=== PATIENT | male | born 1930 | race Caucasian/White ===

== ENCOUNTER 2017-01-17 21:16 | Inpatient (IN) | payer OTHER ==
[~2017-01-17] VITALS: Ht 170.2 cm; Wt 94.5 kg
[~2017-01-17 21:16] MED LIST: AMLODIPINE BESY10 MG PO; ASPIRIN325 MG PO; ATACAND16 MG PO; CIPRO500 MG PO; FLAGYL500 MG PO; METOPROLOL SUCC50 MG PO; METOPROLOL TART50 MG PO; PANTOPRAZOLE SO40 MG PO; SIMVASTATIN20 MG PO; TAMSULOSIN HCL0.4 MG PO; ULTRAM50 MG PO; Vancocin Oral Solution PO; ZOCOR40 MG PO; ZOFRAN ODT8 MG PO
[2017-01-18 00:16] LABS: EOSINOPHIL (%) 0.8 % (0-5); EOSINOPHIL COUNT 0.1 K/uL (0-0.3); IMMATURE GRANULOCYTE (%) 0.5 % (0.0-0.7); INSTRUMENT ABS NEUTROPHIL CT 4.6 K/uL; LYMPHOCYTE COUNT 0.6 K/uL (1.0-2.8); MCH 29.7 PG (29.0-34.0); MCHC 31.4 G/DL (30.0-36.0); MCV 94.6 FL (86-99); MEAN PLAT.VOLUME 11.4 uM^3 (9.0-12.4); MONOCYTE (%) 13.8 % (3-12); MONOCYTE COUNT 0.9 K/uL (0-0.8); NEUTROPHIL (%) 74.7 % (45-76); NEUTROPHIL COUNT 4.6 K/uL (1.8-6.4); PLATELET COUNT 136 K/uL (156-360); RBC DIS.WIDTH-CV 13.2 % (11.8-14.6); RBC DIS.WIDTH-SD 45.9 % (39-53); WHITE BLOOD COUNT 6.2 K/uL (4.1-10.2)
[2017-01-18 00:24] LABS: CHLORIDE 109 mEq/L (99-109); INTER. NORMALIZED RATIO 1.1; POTASSIUM 4.4 mEq/L (3.7-5.4); PROTHROMBIN TIME 11.6 (9.2-11.2); PTT 25.2 (25-32); SODIUM 142 mEq/L (136-147)
[2017-01-18 00:26] LABS: GLUCOSE 102 mg/dL (70-99)
[2017-01-18 00:27] LABS: ANION GAP 11 MEQ/L (2-14)
[2017-01-18 00:30] LABS: GFR ESTIMATE (CALCULATED) 51 mL/min/
[2017-01-18 00:31] LABS: UREA NITROGEN (BUN) 39 mg/dL (9-23)
[2017-01-18 00:57] LABS: TROP-I INTERPRETATION NEGATIVE; TROPONIN-I 0.04 ng/mL (0.0-0.30)
[2017-01-18 03:57] VITALS: BP 145/73
[2017-01-18 07:17] VITALS: BP 127/57
[2017-01-18] MEDS ORDERED: FLOMAX0.4 MG PO (08:13)
[2017-01-18 12:28] VITALS: BP 141/64
[2017-01-18] MEDS ORDERED: TOPROL XL50 MG PO (14:36)
[2017-01-18 15:41] VITALS: BP 118/85
[2017-01-18 18:34] LABS: C DIFF TOXIN NEGATIVE (NEGATIVE)
[2017-01-18 18:38] LABS: PROBE CHECK PASS; SPECIMEN PROCESSING CONTROL PASS
[2017-01-18 19:52] VITALS: BP 161/72
[2017-01-18 23:34] VITALS: BP 130/60
[2017-01-19 03:23] VITALS: BP 111/56
[2017-01-19 07:55] VITALS: BP 138/63
[2017-01-19 08:14] LABS: EOSINOPHIL (%) 1.6 % (0-5); EOSINOPHIL COUNT 0.1 K/uL (0-0.3); HEMATOCRIT 28.7 % (38.0-50.0); IMMATURE GRANULOCYTE (%) 0.5 % (0.0-0.7); LYMPHOCYTE COUNT 0.7 K/uL (1.0-2.8); MCH 29.8 PG (29.0-34.0); MEAN PLAT.VOLUME 11.5 uM^3 (9.0-12.4); MONOCYTE COUNT 0.7 K/uL (0-0.8); NEUTROPHIL (%) 71.9 % (45-76); PLATELET COUNT 149 K/uL (156-360); RBC DIS.WIDTH-CV 13.5 % (11.8-14.6); RBC DIS.WIDTH-SD 47.7 % (39-53); RED BLOOD COUNT 2.99 M/uL (4.00-5.50); WHITE BLOOD COUNT 5.5 K/uL (4.1-10.2)
[2017-01-19 08:17] LABS: ANION GAP 8 MEQ/L (2-14); CHLORIDE 108 MEQ/L (99-109); GFR ESTIMATE (CALCULATED) 51 mL/min/; GLUCOSE 84 mg/dL (70-99); POTASSIUM 4.3 MEQ/L (3.7-5.4); SAMPLE HEMOLYSIS CHECK 0; SAMPLE ICTERIC CHECK 0; SAMPLE LIPEMIA CHECK 0; SODIUM 142 MEQ/L (136-147); UREA NITROGEN (BUN) 40 mg/dL (9-23)
[2017-01-19 11:56] VITALS: BP 145/67
[2017-01-19 14:30] VITALS: BP 158/65
[2017-01-19 18:20] VITALS: BP 139/69
[2017-01-19 23:23] VITALS: BP 132/66
[2017-01-20] VITALS (9 sets, daily range): BP systolic 112–168; BP diastolic 55–83
[2017-01-20 00:15] LABS: HEMATOCRIT 24.1 % (38.0-50.0); MCH 29.9 PG (29.0-34.0); MCHC 31.5 G/DL (30.0-36.0); MCV 94.9 FL (86-99); MEAN PLAT.VOLUME 10.5 uM^3 (9.0-12.4); PLATELET COUNT 105 K/uL (156-360); RBC DIS.WIDTH-CV 13.3 % (11.8-14.6); RBC DIS.WIDTH-SD 45.6 % (39-53); RED BLOOD COUNT 2.54 M/uL (4.00-5.50)
[2017-01-20 00:16] LABS: WHITE BLOOD COUNT 3.8 K/uL (4.1-10.2)
[2017-01-20 08:11] LABS: HEMATOCRIT 26.8 % (38.0-50.0); MCH 30.5 PG (29.0-34.0); MCHC 32.1 G/DL (30.0-36.0); MEAN PLAT.VOLUME 11.1 uM^3 (9.0-12.4); PLATELET COUNT 119 K/uL (156-360); RBC DIS.WIDTH-CV 13.5 % (11.8-14.6); RBC DIS.WIDTH-SD 46.7 % (39-53); RED BLOOD COUNT 2.82 M/uL (4.00-5.50); WHITE BLOOD COUNT 3.4 K/uL (4.1-10.2)
[2017-01-20 08:38] LABS: ANION GAP 8 MEQ/L (2-14); CHLORIDE 109 MEQ/L (99-109); GFR ESTIMATE (CALCULATED) 47 mL/min/; GLUCOSE 120 mg/dL (70-99); POTASSIUM 4.4 MEQ/L (3.7-5.4); SAMPLE HEMOLYSIS CHECK 0; SAMPLE ICTERIC CHECK 0; SAMPLE LIPEMIA CHECK 0; SODIUM 140 MEQ/L (136-147); UREA NITROGEN (BUN) 33 mg/dL (9-23)
[2017-01-20 12:52] LABS: MCH 30.1 PG (29.0-34.0); MCHC 31.8 G/DL (30.0-36.0); MCV 94.6 FL (86-99); MEAN PLAT.VOLUME 11.6 uM^3 (9.0-12.4); PLATELET COUNT 132 K/uL (156-360); RBC DIS.WIDTH-CV 13.6 % (11.8-14.6); RBC DIS.WIDTH-SD 46.4 % (39-53); RED BLOOD COUNT 2.96 M/uL (4.00-5.50)
[2017-01-20 20:04] LABS: HEMATOCRIT 29.2 % (38.0-50.0); MCH 29.8 PG (29.0-34.0); MCHC 31.8 G/DL (30.0-36.0); MCV 93.6 FL (86-99); MEAN PLAT.VOLUME 11.4 uM^3 (9.0-12.4); PLATELET COUNT 129 K/uL (156-360); RBC DIS.WIDTH-CV 13.4 % (11.8-14.6); RBC DIS.WIDTH-SD 45.3 % (39-53); RED BLOOD COUNT 3.12 M/uL (4.00-5.50); WHITE BLOOD COUNT 4.8 K/uL (4.1-10.2)
[2017-01-21 01:18] LABS: HEMATOCRIT 28.7 % (38.0-50.0); MCH 30.1 PG (29.0-34.0); MCHC 32.4 G/DL (30.0-36.0); MCV 92.9 FL (86-99); MEAN PLAT.VOLUME 11.2 uM^3 (9.0-12.4); PLATELET COUNT 129 K/uL (156-360); RBC DIS.WIDTH-CV 13.5 % (11.8-14.6); RBC DIS.WIDTH-SD 45.3 % (39-53); RED BLOOD COUNT 3.09 M/uL (4.00-5.50); WHITE BLOOD COUNT 5.3 K/uL (4.1-10.2)
[2017-01-21 04:15] VITALS: BP 122/77
[2017-01-21 07:47] LABS: EOSINOPHIL (%) 1.1 % (0-5); EOSINOPHIL COUNT 0.1 K/uL (0-0.3); HEMATOCRIT 30.3 % (38.0-50.0); IMMATURE GRANULOCYTE (%) 0.5 % (0.0-0.7); INSTRUMENT ABS NEUTROPHIL CT 4.2 K/uL; LYMPHOCYTE COUNT 0.6 K/uL (1.0-2.8); MCH 30.6 PG (29.0-34.0); MCV 95.6 FL (86-99); MEAN PLAT.VOLUME 11.7 uM^3 (9.0-12.4); MONOCYTE (%) 13.2 % (3-12); MONOCYTE COUNT 0.7 K/uL (0-0.8); NEUTROPHIL (%) 74.6 % (45-76); NEUTROPHIL COUNT 4.2 K/uL (1.8-6.4); PLATELET COUNT 136 K/uL (156-360); RBC DIS.WIDTH-CV 13.5 % (11.8-14.6); RBC DIS.WIDTH-SD 46.4 % (39-53); RED BLOOD COUNT 3.17 M/uL (4.00-5.50); WHITE BLOOD COUNT 5.6 K/uL (4.1-10.2)
[2017-01-21 08:19] LABS: ANION GAP 11 MEQ/L (2-14); CHLORIDE 108 MEQ/L (99-109); GFR ESTIMATE (CALCULATED) 44 mL/min/; GLUCOSE 104 mg/dL (70-99); POTASSIUM 3.9 MEQ/L (3.7-5.4); SAMPLE HEMOLYSIS CHECK 0; SAMPLE ICTERIC CHECK 0; SAMPLE LIPEMIA CHECK 0; SODIUM 141 MEQ/L (136-147); UREA NITROGEN (BUN) 26 mg/dL (9-23)
[2017-01-21 08:26] VITALS: BP 128/92
[2017-01-21 12:01] VITALS: BP 123/58
[2017-01-21 17:22] VITALS: BP 132/65
[2017-01-21 20:30] VITALS: BP 117/60
[2017-01-22] VITALS (7 sets, daily range): BP systolic 115–168; BP diastolic 55–80
[2017-01-22 06:01] LABS: EOSINOPHIL COUNT 0.1 K/uL (0-0.3); HEMATOCRIT 28.8 % (38.0-50.0); IMMATURE GRANULOCYTE (%) 0.7 % (0.0-0.7); INSTRUMENT ABS NEUTROPHIL CT 3.2 K/uL; LYMPHOCYTE COUNT 0.6 K/uL (1.0-2.8); MCH 30.4 PG (29.0-34.0); MCHC 31.9 G/DL (30.0-36.0); MEAN PLAT.VOLUME 11.6 uM^3 (9.0-12.4); MONOCYTE (%) 15.5 % (3-12); MONOCYTE COUNT 0.7 K/uL (0-0.8); NEUTROPHIL (%) 69.1 % (45-76); NEUTROPHIL COUNT 3.2 K/uL (1.8-6.4); PLATELET COUNT 145 K/uL (156-360); RBC DIS.WIDTH-CV 13.7 % (11.8-14.6); RBC DIS.WIDTH-SD 46.7 % (39-53); RED BLOOD COUNT 3.03 M/uL (4.00-5.50); WHITE BLOOD COUNT 4.6 K/uL (4.1-10.2)
[2017-01-22 06:48] LABS: CHLORIDE 109 mEq/L (99-109); POTASSIUM 3.8 mEq/L (3.7-5.4); SODIUM 141 mEq/L (136-147)
[2017-01-22 06:50] LABS: GLUCOSE 109 mg/dL (70-99)
[2017-01-22 06:51] LABS: ANION GAP 9 MEQ/L (2-14)
[2017-01-22 06:54] LABS: GFR ESTIMATE (CALCULATED) 44 mL/min/
[2017-01-22 06:55] LABS: UREA NITROGEN (BUN) 19 mg/dL (9-23)
[2017-01-23] VITALS (7 sets, daily range): BP systolic 115–174; BP diastolic 62–80
[2017-01-24 07:00] VITALS: BP 139/67
[2017-01-24 15:38] VITALS: BP 175/77
[2017-01-24 22:31] VITALS: BP 108/68
[2017-01-25 06:31] LABS: EOSINOPHIL (%) 1.3 % (0-5); EOSINOPHIL COUNT 0.1 K/uL (0-0.3); HEMATOCRIT 26.8 % (38.0-50.0); IMMATURE GRANULOCYTE (%) 0.4 % (0.0-0.7); INSTRUMENT ABS NEUTROPHIL CT 3.4 K/uL; LYMPHOCYTE COUNT 0.5 K/uL (1.0-2.8); MCH 30.9 PG (29.0-34.0); MCHC 32.5 G/DL (30.0-36.0); MEAN PLAT.VOLUME 11.9 uM^3 (9.0-12.4); MONOCYTE (%) 15.2 % (3-12); MONOCYTE COUNT 0.7 K/uL (0-0.8); NEUTROPHIL (%) 72.2 % (45-76); NEUTROPHIL COUNT 3.4 K/uL (1.8-6.4); PLATELET COUNT 132 K/uL (156-360); RBC DIS.WIDTH-CV 13.6 % (11.8-14.6); RED BLOOD COUNT 2.82 M/uL (4.00-5.50); WHITE BLOOD COUNT 4.8 K/uL (4.1-10.2)
[2017-01-25 07:08] VITALS: BP 133/63
[2017-01-25 07:30] LABS: ANION GAP 7 MEQ/L (2-14); CHLORIDE 108 MEQ/L (99-109); GFR ESTIMATE (CALCULATED) 41 mL/min/; GLUCOSE 95 mg/dL (70-99); POTASSIUM 3.9 MEQ/L (3.7-5.4); SAMPLE HEMOLYSIS CHECK 0; SAMPLE ICTERIC CHECK 0; SAMPLE LIPEMIA CHECK 0; SODIUM 142 MEQ/L (136-147); UREA NITROGEN (BUN) 18 mg/dL (9-23)
[2017-01-25] MEDS ORDERED: CALAMINE LOTIO120 ML TP (15:22)
[2017-01-25] MEDS ORDERED: PANTOPRAZOLE SO40 MG PO (15:22)
[2017-01-25 16:12] VITALS: BP 132/72
== END 2017-01-25 16:50 | disposition home or self-care (01) | DRG 378 ==
LOC: EME 21:16 → EDOF 01-18 03:04 → 4EAST 01-18 03:14 → 2EAST 01-18 03:14 → EDOF 01-18 03:14 → 2EAST 01-18 03:50 → 4EAST 01-19 18:24 → 5EAST 01-23 19:34
PROVIDERS: Emergency Medicine; Family Medicine Sports Medicine; Specialist
PROC: 0DJ08ZZ Inspection of Upper Intestinal Tract, Via Natural or Artificial Opening Endoscopic (ICD-10-PCS; principal; 2017-01-19)
PROC: 30233N1 Transfusion of Nonautologous Red Blood Cells into Peripheral Vein, Percutaneous Approach (ICD-10-PCS; 2017-01-20)
PROC: BD47ZZZ Ultrasonography of Gastrointestinal Tract (ICD-10-PCS; 2017-01-20)
PROC: 0DJ08ZZ Inspection of Upper Intestinal Tract, Via Natural or Artificial Opening Endoscopic (ICD-10-PCS; 2017-01-20)
DX: K29.81 Duodenitis with bleeding (principal); C77.2 Secondary and unspecified malignant neoplasm of intra-abdominal lymph nodes; D73.5 Infarction of spleen; R16.1 Splenomegaly, not elsewhere classified; N17.9 Acute kidney failure, unspecified; K29.70 Gastritis, unspecified, without bleeding; I86.8 Varicose veins of other specified sites; N28.89 Other specified disorders of kidney and ureter; D69.6 Thrombocytopenia, unspecified; D64.9 Anemia, unspecified; I12.9 Hypertensive chronic kidney disease with stage 1 through stage 4 chronic kidney disease, or unspecified chronic kidney disease; N18.9 Chronic kidney disease, unspecified; R01.1 Cardiac murmur, unspecified; K21.9 Gastro-esophageal reflux disease without esophagitis; E78.5 Hyperlipidemia, unspecified; I25.10 Atherosclerotic heart disease of native coronary artery without angina pectoris; G89.29 Other chronic pain; I49.3 Ventricular premature depolarization; M54.5 Low back pain; M19.90 Unspecified osteoarthritis, unspecified site; E66.9 Obesity, unspecified; Z68.32 Body mass index [BMI] 32.0-32.9, adult; F41.9 Anxiety disorder, unspecified; F32.9 Major depressive disorder, single episode, unspecified; Z93.3 Colostomy status; Z96.641 Presence of right artificial hip joint; Z98.61 Coronary angioplasty status; Z85.038 Personal history of other malignant neoplasm of large intestine; Z86.73 Personal history of transient ischemic attack (TIA), and cerebral infarction without residual deficits
CPT/HCPCS: 74177; 80048; 84484; 85025; 85027; 85610; 85730; 86900; 86901; 86920; 87493; 90732; 93005; 93306; 94799; 99281; 99285; C1726; C9113; G0009; J2354; J2765; J3010; J7030; J7050; J7120; P9016

== ENCOUNTER 2017-01-27 13:08 | Inpatient (IN) | payer OTHER ==
[~2017-01-27] VITALS: Ht 170.2 cm; Wt 91.1 kg
[~2017-01-27 13:08] MED LIST changes: +CALAMINE LOTIO120 ML TP; +FLOMAX0.4 MG PO; +TOPROL XL50 MG PO
[2017-01-27 13:47] LABS: HEMATOCRIT 27.1 % (38.0-50.0); MCH 29.9 PG (29.0-34.0); MCHC 32.1 G/DL (30.0-36.0); MCV 93.1 FL (86-99); MEAN PLAT.VOLUME 10.4 uM^3 (9.0-12.4); PLATELET COUNT 142 K/uL (156-360); RBC DIS.WIDTH-CV 13.6 % (11.8-14.6); RBC DIS.WIDTH-SD 46.6 % (39-53); RED BLOOD COUNT 2.91 M/uL (4.00-5.50); WHITE BLOOD COUNT 5.1 K/uL (4.1-10.2)
[2017-01-27 13:57] LABS: CHLORIDE 110 mEq/L (99-109); INTER. NORMALIZED RATIO 1.2; POTASSIUM 3.7 mEq/L (3.7-5.4); PROTHROMBIN TIME 11.8 (9.2-11.2); PTT 25.4 (25-32)
[2017-01-27 13:58] LABS: SODIUM 142 mEq/L (136-147)
[2017-01-27 14:00] LABS: GLUCOSE 129 mg/dL (70-99)
[2017-01-27 14:01] LABS: ANION GAP 6 MEQ/L (2-14)
[2017-01-27 14:02] LABS: TOTAL BILIRUBIN 0.5 mg/dL (0.0-1.0)
[2017-01-27 14:03] LABS: ALKALINE PHOSPHATASE 46 IU/L (3-129); GFR ESTIMATE (CALCULATED) 41 mL/min/
[2017-01-27 14:05] LABS: UREA NITROGEN (BUN) 25 mg/dL (9-23)
[2017-01-27 14:09] LABS: TROP-I INTERPRETATION NEGATIVE; TROPONIN-I 0.07 ng/mL (0.0-0.30)
[2017-01-27] MEDS ORDERED: FISH OIL 1,0001 EAC7 PO (15:25)
[2017-01-27] MEDS ORDERED: PROTONIX40 MG PO (15:25)
[2017-01-27] MEDS ORDERED: MEN 50 PLUS MU1 EACH PO (15:25)
[2017-01-27 17:30] VITALS: BP 150/85
[2017-01-27 18:10] VITALS: BP 183/78
[2017-01-27 19:09] VITALS: BP 182/90
[2017-01-27 20:20] VITALS: BP 160/70
[2017-01-28 00:41] LABS: HEMATOCRIT 24.7 % (38.0-50.0); MCV 90.8 FL (86-99)
[2017-01-28 01:33] VITALS: BP 134/67
[2017-01-28 06:51] VITALS: BP 152/70
[2017-01-28 08:06] LABS: HEMATOCRIT 25.7 % (38.0-50.0); MCHC 32.3 G/DL (30.0-36.0); MCV 92.8 FL (86-99); MEAN PLAT.VOLUME 10.9 uM^3 (9.0-12.4); PLATELET COUNT 146 K/uL (156-360); RBC DIS.WIDTH-CV 15.7 % (11.8-14.6); RBC DIS.WIDTH-SD 53.1 % (39-53); RED BLOOD COUNT 2.77 M/uL (4.00-5.50); WHITE BLOOD COUNT 5.5 K/uL (4.1-10.2)
[2017-01-28 08:49] LABS: ALKALINE PHOSPHATASE 37 IU/L (3-129); ANION GAP 4 MEQ/L (2-14); CHLORIDE 109 MEQ/L (99-109); GFR ESTIMATE (CALCULATED) 44 mL/min/; GLUCOSE 124 mg/dL (70-99); POTASSIUM 4.3 MEQ/L (3.7-5.4); SAMPLE HEMOLYSIS CHECK 0; SAMPLE ICTERIC CHECK 0; SAMPLE LIPEMIA CHECK 0; SODIUM 141 MEQ/L (136-147); TOTAL BILIRUBIN 1.1 MG/DL (0.0-1.0); UREA NITROGEN (BUN) 25 mg/dL (9-23)
[2017-01-28 14:30] LABS: HEMATOCRIT 26.1 % (38.0-50.0); MCV 92.6 FL (86-99)
[2017-01-28 20:26] LABS: HEMATOCRIT 26.3 % (38.0-50.0); MCV 93.9 FL (86-99)
[2017-01-29 02:21] LABS: HEMATOCRIT 25.3 % (38.0-50.0)
[2017-01-29 08:00] VITALS: BP 151/69
[2017-01-29 08:32] LABS: EOSINOPHIL COUNT 0.1 K/uL (0-0.3); HEMATOCRIT 25.7 % (38.0-50.0); IMMATURE GRANULOCYTE (%) 0.4 % (0.0-0.7); INSTRUMENT ABS NEUTROPHIL CT 3.3 K/uL; LYMPHOCYTE COUNT 0.5 K/uL (1.0-2.8); MCH 29.2 PG (29.0-34.0); MCHC 31.5 G/DL (30.0-36.0); MCV 92.8 FL (86-99); MEAN PLAT.VOLUME 10.6 uM^3 (9.0-12.4); MONOCYTE (%) 13.8 % (3-12); MONOCYTE COUNT 0.6 K/uL (0-0.8); NEUTROPHIL (%) 72.2 % (45-76); NEUTROPHIL COUNT 3.3 K/uL (1.8-6.4); PLATELET COUNT 157 K/uL (156-360); RBC DIS.WIDTH-CV 15.6 % (11.8-14.6); RBC DIS.WIDTH-SD 52.3 % (39-53); RED BLOOD COUNT 2.77 M/uL (4.00-5.50); WHITE BLOOD COUNT 4.6 K/uL (4.1-10.2)
[2017-01-29 08:50] LABS: CHLORIDE 109 mEq/L (99-109); POTASSIUM 4.1 mEq/L (3.7-5.4); SODIUM 144 mEq/L (136-147)
[2017-01-29 08:52] LABS: GLUCOSE 127 mg/dL (70-99)
[2017-01-29 08:53] LABS: ANION GAP 5 MEQ/L (2-14)
[2017-01-29 08:56] LABS: GFR ESTIMATE (CALCULATED) 41 mL/min/
[2017-01-29 08:57] LABS: UREA NITROGEN (BUN) 20 mg/dL (9-23)
[2017-01-29 15:54] VITALS: BP 151/67
[2017-01-29 16:23] LABS: HEMATOCRIT 27.8 % (38.0-50.0); MCV 93.9 FL (86-99)
[2017-01-30] VITALS (8 sets, daily range): BP systolic 94–136; BP diastolic 59–63
[2017-01-30 07:16] LABS: EOSINOPHIL (%) 2.9 % (0-5); EOSINOPHIL COUNT 0.1 K/uL (0-0.3); HEMATOCRIT 24.1 % (38.0-50.0); IMMATURE GRANULOCYTE (%) 0.4 % (0.0-0.7); INSTRUMENT ABS NEUTROPHIL CT 3.2 K/uL; LYMPHOCYTE COUNT 0.5 K/uL (1.0-2.8); MCH 29.8 PG (29.0-34.0); MCHC 31.5 G/DL (30.0-36.0); MCV 94.5 FL (86-99); MEAN PLAT.VOLUME 10.9 uM^3 (9.0-12.4); MONOCYTE (%) 14.2 % (3-12); MONOCYTE COUNT 0.6 K/uL (0-0.8); NEUTROPHIL (%) 70.4 % (45-76); NEUTROPHIL COUNT 3.2 K/uL (1.8-6.4); PLATELET COUNT 148 K/uL (156-360); RBC DIS.WIDTH-CV 15.3 % (11.8-14.6); RBC DIS.WIDTH-SD 52.6 % (39-53); RED BLOOD COUNT 2.55 M/uL (4.00-5.50); WHITE BLOOD COUNT 4.5 K/uL (4.1-10.2)
[2017-01-30 07:53] LABS: ANION GAP 7 MEQ/L (2-14); CHLORIDE 110 MEQ/L (99-109); GFR ESTIMATE (CALCULATED) 38 mL/min/; GLUCOSE 112 mg/dL (70-99); POTASSIUM 3.9 MEQ/L (3.7-5.4); SAMPLE HEMOLYSIS CHECK 0; SAMPLE ICTERIC CHECK 0; SAMPLE LIPEMIA CHECK 0; SODIUM 144 MEQ/L (136-147); UREA NITROGEN (BUN) 16 mg/dL (9-23)
[2017-01-31 04:28] VITALS: BP 136/64
[2017-01-31 07:26] VITALS: BP 120/57
[2017-01-31 07:27] LABS: HEMATOCRIT 27.1 % (38.0-50.0); MCV 93.1 FL (86-99)
[2017-01-31 13:19] LABS: HEMATOCRIT 26.6 % (38.0-50.0); MCH 29.5 PG (29.0-34.0); MCHC 31.6 G/DL (30.0-36.0); MCV 93.3 FL (86-99); PLATELET COUNT 130 K/uL (156-360); RBC DIS.WIDTH-CV 15.1 % (11.8-14.6); RBC DIS.WIDTH-SD 51.1 % (39-53); RED BLOOD COUNT 2.85 M/uL (4.00-5.50); WHITE BLOOD COUNT 5.6 K/uL (4.1-10.2)
[2017-01-31 16:56] VITALS: BP 137/58
[2017-01-31 18:36] LABS: HEMATOCRIT 28.9 % (38.0-50.0); MCV 93.2 FL (86-99)
[2017-01-31 22:43] VITALS: BP 129/55
[2017-02-01 08:13] VITALS: BP 106/53
[2017-02-01 08:14] LABS: EOSINOPHIL (%) 1.2 % (0-5); EOSINOPHIL COUNT 0.1 K/uL (0-0.3); HEMATOCRIT 27.2 % (38.0-50.0); IMMATURE GRANULOCYTE (%) 0.4 % (0.0-0.7); INSTRUMENT ABS NEUTROPHIL CT 5.1 K/uL; LYMPHOCYTE COUNT 0.5 K/uL (1.0-2.8); MCH 29.1 PG (29.0-34.0); MCHC 31.3 G/DL (30.0-36.0); MCV 93.2 FL (86-99); MEAN PLAT.VOLUME 11.6 uM^3 (9.0-12.4); MONOCYTE (%) 15.4 % (3-12); NEUTROPHIL (%) 75.7 % (45-76); NEUTROPHIL COUNT 5.1 K/uL (1.8-6.4); PLATELET COUNT 135 K/uL (156-360); RBC DIS.WIDTH-CV 14.8 % (11.8-14.6); RBC DIS.WIDTH-SD 50.6 % (39-53); RED BLOOD COUNT 2.92 M/uL (4.00-5.50); WHITE BLOOD COUNT 6.7 K/uL (4.1-10.2)
[2017-02-01 09:00] VITALS: BP 106/51
[2017-02-01 10:48] VITALS: BP 122/59
[2017-02-01 17:10] VITALS: BP 123/57
[2017-02-01 18:13] LABS: HEMATOCRIT 26.6 % (38.0-50.0); MCV 93.7 FL (86-99)
[2017-02-01 21:43] VITALS: BP 133/63
[2017-02-01 22:46] VITALS: BP 137/63
[2017-02-02 07:13] LABS: HEMATOCRIT 24.6 % (38.0-50.0); MCH 29.5 PG (29.0-34.0); MCHC 31.3 G/DL (30.0-36.0); MCV 94.3 FL (86-99); MEAN PLAT.VOLUME 11.5 uM^3 (9.0-12.4); PLATELET COUNT 113 K/uL (156-360); RBC DIS.WIDTH-CV 14.5 % (11.8-14.6); RBC DIS.WIDTH-SD 49.6 % (39-53); RED BLOOD COUNT 2.61 M/uL (4.00-5.50); WHITE BLOOD COUNT 4.7 K/uL (4.1-10.2)
[2017-02-02 07:34] VITALS: BP 113/56
[2017-02-02 15:12] VITALS: BP 110/50
[2017-02-02 18:38] LABS: MCV 94.6 FL (86-99)
[2017-02-03] VITALS (10 sets, daily range): BP systolic 106–160; BP diastolic 52–89
[2017-02-03 06:43] LABS: EOSINOPHIL (%) 1.6 % (0-5); EOSINOPHIL COUNT 0.1 K/uL (0-0.3); HEMATOCRIT 24.4 % (38.0-50.0); IMMATURE GRANULOCYTE (%) 0.2 % (0.0-0.7); INSTRUMENT ABS NEUTROPHIL CT 3.7 K/uL; LYMPHOCYTE COUNT 0.4 K/uL (1.0-2.8); MCHC 31.6 G/DL (30.0-36.0); MCV 94.9 FL (86-99); MONOCYTE (%) 15.2 % (3-12); MONOCYTE COUNT 0.7 K/uL (0-0.8); NEUTROPHIL (%) 75.4 % (45-76); NEUTROPHIL COUNT 3.7 K/uL (1.8-6.4); PLATELET COUNT 116 K/uL (156-360); RBC DIS.WIDTH-CV 14.2 % (11.8-14.6); RBC DIS.WIDTH-SD 48.9 % (39-53); RED BLOOD COUNT 2.57 M/uL (4.00-5.50); WHITE BLOOD COUNT 4.9 K/uL (4.1-10.2)
[2017-02-03 07:16] LABS: ANION GAP 7 MEQ/L (2-14); CHLORIDE 107 MEQ/L (99-109); GFR ESTIMATE (CALCULATED) 44 mL/min/; GLUCOSE 74 mg/dL (70-99); POTASSIUM 4.1 MEQ/L (3.7-5.4); SAMPLE HEMOLYSIS CHECK 0; SAMPLE ICTERIC CHECK 0; SAMPLE LIPEMIA CHECK 0; SODIUM 140 MEQ/L (136-147); UREA NITROGEN (BUN) 17 mg/dL (9-23)
[2017-02-04] VITALS (7 sets, daily range): BP systolic 112–150; BP diastolic 58–65
[2017-02-04 06:04] LABS: ANION GAP 10 MEQ/L (2-14); CHLORIDE 106 MEQ/L (99-109); GFR ESTIMATE (CALCULATED) 44 mL/min/; POTASSIUM 3.4 MEQ/L (3.7-5.4); SAMPLE HEMOLYSIS CHECK 0; SAMPLE ICTERIC CHECK 0; SAMPLE LIPEMIA CHECK 0; SODIUM 142 MEQ/L (136-147); UREA NITROGEN (BUN) 19 mg/dL (9-23)
[2017-02-04 06:05] LABS: GLUCOSE 106 mg/dL (70-99)
[2017-02-04 06:13] LABS: EOSINOPHIL (%) 0.9 % (0-5); EOSINOPHIL COUNT 0.1 K/uL (0-0.3); IMMATURE GRANULOCYTE (%) 0.4 % (0.0-0.7); INSTRUMENT ABS NEUTROPHIL CT 4.3 K/uL; LYMPHOCYTE COUNT 0.3 K/uL (1.0-2.8); MCH 29.6 PG (29.0-34.0); MEAN PLAT.VOLUME 11.1 uM^3 (9.0-12.4); MONOCYTE (%) 13.9 % (3-12); MONOCYTE COUNT 0.8 K/uL (0-0.8); NEUTROPHIL (%) 78.6 % (45-76); NEUTROPHIL COUNT 4.3 K/uL (1.8-6.4); PLATELET COUNT 133 K/uL (156-360); RBC DIS.WIDTH-CV 14.5 % (11.8-14.6); RBC DIS.WIDTH-SD 47.4 % (39-53); WHITE BLOOD COUNT 5.5 K/uL (4.1-10.2)
[2017-02-04 06:43] LABS: MCV 89.7 FL (86-99); RED BLOOD COUNT 3.68 M/uL (4.00-5.50)
[2017-02-05 07:18] VITALS: BP 105/56
[2017-02-05 16:00] VITALS: BP 137/65
[2017-02-05 21:32] VITALS: BP 152/67
[2017-02-05 23:44] VITALS: BP 129/64
[2017-02-05 23:47] VITALS: BP 113/59
[2017-02-06 06:59] VITALS: BP 130/62
[2017-02-06 15:15] VITALS: BP 159/70
[2017-02-06 21:14] VITALS: BP 159/74
[2017-02-06 23:59] VITALS: BP 139/68
[2017-02-07 05:56] LABS: EOSINOPHIL (%) 1.6 % (0-5); EOSINOPHIL COUNT 0.1 K/uL (0-0.3); HEMATOCRIT 32.8 % (38.0-50.0); IMMATURE GRANULOCYTE (%) 0.2 % (0.0-0.7); INSTRUMENT ABS NEUTROPHIL CT 3.8 K/uL; LYMPHOCYTE COUNT 0.5 K/uL (1.0-2.8); MCH 29.6 PG (29.0-34.0); MCHC 32.6 G/DL (30.0-36.0); MCV 90.9 FL (86-99); MEAN PLAT.VOLUME 11.3 uM^3 (9.0-12.4); MONOCYTE (%) 15.4 % (3-12); MONOCYTE COUNT 0.8 K/uL (0-0.8); NEUTROPHIL (%) 73.2 % (45-76); NEUTROPHIL COUNT 3.8 K/uL (1.8-6.4); PLATELET COUNT 110 K/uL (156-360); RBC DIS.WIDTH-CV 14.2 % (11.8-14.6); RBC DIS.WIDTH-SD 47.6 % (39-53); RED BLOOD COUNT 3.61 M/uL (4.00-5.50); WHITE BLOOD COUNT 5.1 K/uL (4.1-10.2)
[2017-02-07 06:24] LABS: ANION GAP 6 MEQ/L (2-14); CHLORIDE 111 MEQ/L (99-109); GFR ESTIMATE (CALCULATED) 38 mL/min/; GLUCOSE 104 mg/dL (70-99); POTASSIUM 3.9 MEQ/L (3.7-5.4); SAMPLE HEMOLYSIS CHECK 0; SAMPLE ICTERIC CHECK 0; SAMPLE LIPEMIA CHECK 0; SODIUM 143 MEQ/L (136-147)
[2017-02-07 06:27] LABS: UREA NITROGEN (BUN) 33 mg/dL (9-23)
[2017-02-07 06:54] VITALS: BP 139/65
[2017-02-07] MEDS ORDERED: TYLENOL REGULA325 MG PO (14:47)
[2017-02-07] MEDS ORDERED: TRAMADOL HCL50 MG PO (14:47)
[2017-02-07] MEDS ORDERED: APRESOLINE50 MG PO (14:47)
[2017-02-07] MEDS ORDERED: PROTONIX40 MG PO (14:48)
[2017-02-07] MEDS ORDERED: TRAZODONE HCL50 MG PO (14:48)
[2017-02-07] MEDS ORDERED: Robitussin AC,Tussi- PO (14:48)
[2017-02-07 15:25] VITALS: BP 150/69
[2017-02-07 21:07] VITALS: BP 143/67
[2017-02-07 23:54] VITALS: BP 105/60
[2017-02-08 07:08] VITALS: BP 133/63
[2017-02-08 15:10] VITALS: BP 161/57
== END 2017-02-08 16:10 | DRG 378 ==
LOC: EME 13:08 → 5EAST 17:03 → EDOF 17:03 → 5EAST 19:53
PROVIDERS: Emergency Medicine; Family Medicine Sports Medicine; Internal Medicine Gastroenterology; Surgery
PROC: 30253N1 (ICD-10-PCS; 2017-01-27)
PROC: 0DB68ZX Excision of Stomach, Via Natural or Artificial Opening Endoscopic, Diagnostic (ICD-10-PCS; principal; 2017-01-28)
PROC: 0DJD8ZZ Inspection of Lower Intestinal Tract, Via Natural or Artificial Opening Endoscopic (ICD-10-PCS; 2017-02-01)
DX: K92.1 Melena (principal); K92.2 Gastrointestinal hemorrhage, unspecified; D62 Acute posthemorrhagic anemia; I12.9 Hypertensive chronic kidney disease with stage 1 through stage 4 chronic kidney disease, or unspecified chronic kidney disease; N18.2 Chronic kidney disease, stage 2 (mild); E78.5 Hyperlipidemia, unspecified; I25.10 Atherosclerotic heart disease of native coronary artery without angina pectoris; Z90.49 Acquired absence of other specified parts of digestive tract; Z85.038 Personal history of other malignant neoplasm of large intestine; Z96.641 Presence of right artificial hip joint; Z98.61 Coronary angioplasty status; E87.6 Hypokalemia; K21.9 Gastro-esophageal reflux disease without esophagitis; F32.9 Major depressive disorder, single episode, unspecified; Z86.73 Personal history of transient ischemic attack (TIA), and cerebral infarction without residual deficits; M19.90 Unspecified osteoarthritis, unspecified site; D69.6 Thrombocytopenia, unspecified; I35.0 Nonrheumatic aortic (valve) stenosis; K22.4 Dyskinesia of esophagus; K29.80 Duodenitis without bleeding; I86.4 Gastric varices; I85.00 Esophageal varices without bleeding; E66.9 Obesity, unspecified; Z68.31 Body mass index [BMI] 31.0-31.9, adult; C77.2 Secondary and unspecified malignant neoplasm of intra-abdominal lymph nodes; Q43.8 Other specified congenital malformations of intestine; D73.5 Infarction of spleen; F41.9 Anxiety disorder, unspecified; K43.5 Parastomal hernia without obstruction or gangrene; Z85.528 Personal history of other malignant neoplasm of kidney
CPT/HCPCS: 36415; 71020; 74176; 80048; 80053; 80069; 82948; 83540; 84466; 84484; 85014; 85018; 85025; 85027; 85384; 85610; 85730; 86900; 86901; 86920; 88305; 88342 TC; 93005; 94799; 97530 GP; 99281; 99285; C9113; J1940; J2354; J2405; J2765; J7120; P9016